=== PATIENT | female | born 1990 | race Two or more races ===

== ENCOUNTER 2016-10-06 16:54 | Emergency (ER) | payer MEDICAID, OTHER ==
[~2016-10-06] VITALS: Ht 157.5 cm; Wt 88.5 kg
[2016-10-06 18:14] LABS: Basophils # (auto) 0 uL; DEFINITIVE VIEW TRANSMISSION; Eosinophils # (auto) 0.1 uL; Eosinophils % (auto) 1.1 % (0.0-7.0); Monocytes # (auto) 0.5 uL
[2016-10-06 18:17] LABS: Basophils % (auto) 0.5 % (0.0-2.0); Hematocrit 41.7 % (36.0-46.0); Hemoglobin 13.6 g/dL (12.2-16.2); Lymphocytes % (auto) 21.6 % (10.0-50.0); Mean Corpuscular Hemoglobin 26.6 pg (28.0-32.0); Mean Corpuscular Hgb Conc. 32.5 g/dL (32.0-36.0); Mean Corpuscular Volume 81.9 fL (80.0-100.0); Mean Platelet Volume 9.1 fL (7.4-10.4); Monocytes % (auto) 5.5 % (0.0-12.0); Neutrophils # (auto) 6.6 uL; Neutrophils % (auto) 71.3 % (37.0-80.0); Platelet Count (auto) 317 10^3/uL (140-450); Red Cell Distribution Width 15.3 % (11.6-16.0); White Blood Cell 9.2 10^3/uL (4.4-10.8)
[2016-10-06 18:23] LABS: Urine Bilirubin Negative (Negative); Urine Color Yellow (Yellow); Urine Glucose Normal (Normal); Urine Ketone Negative (Negative); Urine Mucus FEW (None Seen); Urine Nitrite Negative (Negative); Urine RBC 10 /hpf (0 - 4); Urine Squamous Epithelial Cell MOD /hpf (<5); Urine Urobilinogen Normal (Negative)
[2016-10-06 18:29] LABS: Urine Blood 2+ /uL (Negative)
[2016-10-06 18:41] LABS: Albumin 3.9 g/dL (3.4-5.0); BUN/Creatinine Ratio 13.9; Calcium 8.6 mg/dL (8.5-10.1); Potassium 3.7 mmol/L (3.5-5.1)
[2016-10-06 18:44] LABS: Bilirubin, Total 0.3 mg/dL (0.2-1.0); Total Protein 8.4 g/dL (6.4-8.2)
[2016-10-06] MEDS ORDERED: metroNIDAZOLE 500 MG TAB PO ONE (23:00)
[2016-10-06] MEDS ORDERED: SODIUM CHLORIDE 0.9% 1,000 ML IV ONE (23:00)
[2016-10-06 23:33] VITALS: BP 115/45
== END 2016-10-06 23:48 | disposition home or self-care (01) ==
LOC: ER 17:11
DX: N39.0 Urinary tract infection, site not specified (principal)
CPT/HCPCS: 36415; 74176; 80053; 81001; 83690; 84702; 85025; 85049; 94761; 96360; 99285; J7030

== ENCOUNTER 2017-05-31 18:43 | Emergency (ER) | payer MEDICAID ==
[~2017-05-31] VITALS: Ht 157.5 cm; Wt 98.4 kg
[2017-05-31 18:51] VITALS: BP 107/57
== END 2017-05-31 22:51 | disposition home or self-care (01) ==
LOC: ER 18:45
DX: O26.892 Other specified pregnancy related conditions, second trimester (principal); J02.9 Acute pharyngitis, unspecified; Z3A.25 25 weeks gestation of pregnancy

== ENCOUNTER 2017-10-09 08:02 | Emergency (ER) | payer MEDICAID ==
[~2017-10-09] VITALS: Ht 157.5 cm; Wt 90.7 kg
[2017-10-09 08:54] VITALS: BP 123/71
[2017-10-09 09:21] LABS: Basophils # (auto) 0 uL; Basophils % (auto) 0.7 % (0.0-2.0); Eosinophils # (auto) 0.1 uL; Eosinophils % (auto) 1.5 % (0.0-7.0); Hematocrit 34.9 % (36.0-46.0); Hemoglobin 11.6 g/dL (12.2-16.2); Lymphocytes # (auto) 1.1 uL; Lymphocytes % (auto) 15.2 % (10.0-50.0); Mean Corpuscular Hemoglobin 28.8 pg (28.0-32.0); Mean Corpuscular Hgb Conc. 33.3 g/dL (32.0-36.0); Mean Corpuscular Volume 86.3 fL (80.0-100.0); Monocytes # (auto) 0.5 uL; Monocytes % (auto) 6.7 % (0.0-12.0); Neutrophils # (auto) 5.4 uL; Neutrophils % (auto) 75.9 % (37.0-80.0); Nucleated Red Blood Cells % 0.1 %; Platelet Count (auto) 318 10^3/uL (140-450); Red Blood Cells 4.04 10^6/uL (4.0-5.20); Red Cell Distribution Width 14.6 % (11.8-14.3)
[2017-10-09 09:45] LABS: Albumin 3.3 g/dL (3.4-5.0); Bilirubin, Total 0.4 mg/dL (0.2-1.0); Calcium 8.4 mg/dL (8.5-10.1); Potassium 3.7 mmol/L (3.5-5.1)
[2017-10-09 09:52] LABS: Urine Bacteria NONE SEEN /hpf (None Seen); Urine Blood 3+ /uL (Negative); Urine Specific Gravity 1.012 (1.001-1.035); Urine WBC 8 /hpf (0 - 5)
== END 2017-10-09 10:08 | disposition home or self-care (01) ==
LOC: ER 08:02
DX: N39.0 Urinary tract infection, site not specified (principal); N94.6 Dysmenorrhea, unspecified
CPT/HCPCS: 36415; 76830; 76856; 80053; 81001; 81025; 84702; 85025

== ENCOUNTER 2018-01-30 12:44 | Emergency (ER) | payer MEDICAID ==
[~2018-01-30] VITALS: Ht 157.5 cm; Wt 77.1 kg
[2018-01-30 12:52] VITALS: BP 120/80
== END 2018-01-30 15:51 | disposition home or self-care (01) ==
LOC: ER 12:46
DX: J02.9 Acute pharyngitis, unspecified (principal)

== ENCOUNTER 2018-09-10 10:44 | Emergency (ER) | payer MEDICAID ==
[~2018-09-10] VITALS: Ht 157.5 cm; Wt 77.1 kg
[2018-09-10 11:09] VITALS: BP 125/65
== END 2018-09-10 11:53 | disposition home or self-care (01) ==
LOC: ER 10:44
DX: J06.9 Acute upper respiratory infection, unspecified (principal)

== ENCOUNTER 2019-01-07 09:10 | Emergency (ER) | payer MEDICAID ==
[~2019-01-07] VITALS: Ht 157.5 cm; Wt 77.1 kg
[2019-01-07 10:01] VITALS: BP 125/76
== END 2019-01-07 10:54 | disposition home or self-care (01) ==
LOC: ER 09:10
DX: J03.90 Acute tonsillitis, unspecified (principal)

== ENCOUNTER 2022-09-27 16:35 | Emergency (ER) | payer MEDICAID, OTHER ==
[~2022-09-27] VITALS: Ht 157.5 cm; Wt 81.6 kg
[2022-09-27] MEDS ORDERED: CYCL-837 PO (21:37)
[2022-09-27] MEDS ORDERED: ACET-1158 PO (21:37)
[2022-09-27 23:01] VITALS: BP 121/74
== END 2022-09-27 23:01 | disposition home or self-care (01) ==
LOC: ER 16:35
DX: S39.012A Strain of muscle, fascia and tendon of lower back, initial encounter (principal); S30.1XXA Contusion of abdominal wall, initial encounter; V43.52XA Car driver injured in collision with other type car in traffic accident, initial encounter; Y93.89 Activity, other specified; Y92.410 Unspecified street and highway as the place of occurrence of the external cause; Y99.8 Other external cause status

== ENCOUNTER 2022-10-13 20:16 | Emergency (ER) | payer MEDICAID, OTHER ==
[~2022-10-13] VITALS: Ht 157.5 cm; Wt 80.5 kg
[~2022-10-13 20:16] MED LIST: ACET-1158 PO; CYCL-837 PO
[2022-10-13 21:51] LABS: Basophils # (auto) 0 10 ^3/uL (0-0.2); Basophils % (auto) 0.8 % (0.0-2.0); Eosinophils # (auto) 0.1 10 ^3/uL (0-0.8); Hematocrit 37.7 % (36.0-46.0); Hemoglobin 12.5 g/dL (12.2-16.2); Lymphocytes # (auto) 1.9 10 ^3/uL (0.4-5.4); Lymphocytes % (auto) 30.5 % (10.0-50.0); Mean Corpuscular Hemoglobin 28.4 pg (28.0-32.0); Mean Corpuscular Hgb Conc. 33.3 g/dL (32.0-36.0); Mean Corpuscular Volume 85.3 fL (80.0-100.0); Monocytes # (auto) 0.5 10 ^3/uL (0-1.3); Monocytes % (auto) 7.3 % (0.0-12.0); Neutrophils # (auto) 3.8 10 ^3/uL (1.6-8.6); Neutrophils % (auto) 60.4 % (37.0-80.0); Nucleated Red Blood Cells % 0.1 %; Red Blood Cells 4.42 10^6/uL (4.0-5.20); Red Cell Distribution Width 13.8 % (11.8-14.3); White Blood Cell 6.3 10^3/uL (4.4-10.8)
[2022-10-13] MEDS ORDERED: SODIUM CHLORIDE 0.9% 1,000 ML IV ONE (22:00)
[2022-10-13 22:07] LABS: Albumin 3.5 g/dL (3.4-5.0); Calcium 9.2 mg/dL (8.5-10.1); Potassium 4.2 mmol/L (3.5-5.1)
[2022-10-13 22:09] LABS: BUN/Creatinine Ratio 13.6
[2022-10-13 22:11] LABS: Bilirubin, Total 0.2 mg/dL (0.2-1.0); Total Protein 7.8 g/dL (6.4-8.2)
[2022-10-14 01:44] LABS: Urine Bacteria FEW /hpf (None Seen); Urine Blood 3+ /uL (Negative); Urine Mucus FEW (None Seen); Urine WBC 14 /hpf (0 - 5)
[2022-10-14] MEDS ORDERED: CIPR-173 PO (03:03)
[2022-10-14] MEDS ORDERED: cefTRIAXone SOD 1,000 MG VL IM ONE (03:15)
[2022-10-14 03:35] VITALS: BP 124/61
== END 2022-10-14 03:44 | disposition home or self-care (01) ==
LOC: ER 20:18
DX: R10.9 Unspecified abdominal pain (principal)
CPT/HCPCS: 36415; 74176; 80053; 81001; 85025; 96360; 96372; 99285; J0696; J7030

== ENCOUNTER → 2024-06-19 | Outpatient (CLI) | payer MEDICAID ==
[~2024-06-19] MED LIST changes: -ACET-1158 PO; +ACET500T58 PO; +CIPR-173 PO
[2024-06-19 12:54] LABS: Basophils # (auto) 0 10 ^3/uL (0-0.2); Basophils % (auto) 0.5 % (0.0-2.0); Eosinophils # (auto) 0 10 ^3/uL (0-0.8); Eosinophils % (auto) 0.3 % (0.0-7.0); Hematocrit 35.1 % (36.0-46.0); Hemoglobin 11.7 g/dL (12.2-16.2); Lymphocytes # (auto) 1.2 10 ^3/uL (0.4-5.4); Lymphocytes % (auto) 17.3 % (10.0-50.0); Mean Corpuscular Hemoglobin 28.1 pg (28.0-32.0); Mean Corpuscular Hgb Conc. 33.4 g/dL (32.0-36.0); Mean Corpuscular Volume 84.2 fL (80.0-100.0); Monocytes # (auto) 0.3 10 ^3/uL (0-1.3); Monocytes % (auto) 4.3 % (0.0-12.0); Neutrophils # (auto) 5.5 10 ^3/uL (1.6-8.6); Neutrophils % (auto) 77.6 % (37.0-80.0); Nucleated Red Blood Cells % 0.1 %; Platelet Count (auto) 316 10^3/uL (140-450); Red Blood Cells 4.17 10^6/uL (4.0-5.20); Red Cell Distribution Width 15.1 % (11.8-14.3); White Blood Cell 7.1 10^3/uL (4.4-10.8)
[2024-06-19 13:18] LABS: Amphetamine Screen, Urine Neg (NEGATIVE)
[2024-06-19 13:20] LABS: Barbiturate Scree,Urine Neg (NEGATIVE); Benzodiazephine Screen, Urine Neg (NEGATIVE); Cannabinoid Screen, Urine Neg (NEGATIVE); Cocaine Screen, Urine Neg (NEGATIVE); Opiate Scree,Urine Neg (NEGATIVE); Phencyclidine Screen, Urine Neg (NEGATIVE)
[2024-06-19 13:21] LABS: Alanine Aminotransferase 12 U/L (7-40); Albumin 4.6 g/dL (3.2-4.8); Alkaline Phosphatase 104 U/L (46-116); Anion Gap 9 (5-15); Aspartate Aminotransferase 14 U/L (13-40); BUN/Creatinine Ratio 7.8 (10.0-20.0); Blood Urea Nitrogen 6 mg/dL (9-23); Calcium 9.9 mg/dL (8.7-10.4); Carbon Dioxide 23 mmol/L (20-31); Chloride 105 mmol/L (98-107); Glucose 83 mg/dL (74-106); LDL Cholesterol 83 mg/dL (< 100); Potassium 3.6 mmol/L (3.5-5.1); Sodium 137 mmol/L (136-145); Thyroid Stimulating Hormone 1.04 uIU/mL (0.55-4.78); Triglycerides 133 mg/dL (< 150)
[2024-06-19 13:22] LABS: Bilirubin, Total 0.5 mg/dL (0.2-1.0); Cholesterol 156 mg/dL (< 200); HDL Cholesterol 56 mg/dL (40-59); Total Protein 7.8 g/dL (5.7-8.2)
[2024-06-19 13:29] LABS: Beta HCG, Quantitative 30678.6 mIU/mL (1.5-4.2)
[2024-06-20 08:06] LABS: RPR Non Reactive (Non Reactive)
[2024-06-21 04:06] LABS: Varicella Zoster IgG Antibody Reactive (Non Reactive)
== END | disposition home or self-care (01) ==
LOC: LAB 11:47
PROVIDERS: ATTEND Obstetrics & Gynecology
DX: Z34.80 Encounter for supervision of other normal pregnancy, unspecified trimester (principal); Z36.0 Encounter for antenatal screening for chromosomal anomalies; Z31.430 Encounter of female for testing for genetic disease carrier status for procreative management; N39.0 Urinary tract infection, site not specified
CPT/HCPCS: 36415; 80053; 80061; 80307; 83036; 84439; 84443; 84702; 85025; 86592; 86703; 86762; 86787; 86850; 86900; 86901; 87086; 87340; 87902

== ENCOUNTER → 2024-08-14 | Outpatient (CLI) | payer MEDICAID ==
[2024-08-15 13:06] LABS: Chlamydia Trachomatis, NAA Negative (Negative); Neisseria gonorrhoeae, NAA Negative (Negative)
== END | disposition home or self-care (01) ==
LOC: LAB 15:17
DX: Z34.00 Encounter for supervision of normal first pregnancy, unspecified trimester (principal)
CPT/HCPCS: 87086

== ENCOUNTER → 2024-11-06 | Outpatient (CLI) | payer MEDICAID ==
[2024-11-06 09:27] LABS: Basophils # (auto) 0 10 ^3/uL (0-0.2); Basophils % (auto) 0.5 % (0.0-2.0); Eosinophils # (auto) 0.1 10 ^3/uL (0-0.8); Eosinophils % (auto) 0.7 % (0.0-7.0); Hematocrit 35.4 % (36.0-46.0); Hemoglobin 11.8 g/dL (12.2-16.2); Lymphocytes # (auto) 1.3 10 ^3/uL (0.4-5.4); Lymphocytes % (auto) 14.7 % (10.0-50.0); Mean Corpuscular Hemoglobin 29.8 pg (28.0-32.0); Mean Corpuscular Hgb Conc. 33.3 g/dL (32.0-36.0); Mean Corpuscular Volume 89.5 fL (80.0-100.0); Monocytes # (auto) 0.4 10 ^3/uL (0-1.3); Monocytes % (auto) 4.7 % (0.0-12.0); Neutrophils # (auto) 6.8 10 ^3/uL (1.6-8.6); Neutrophils % (auto) 79.4 % (37.0-80.0); Nucleated Red Blood Cells % 0.2 %; Platelet Count (auto) 268 10^3/uL (140-450); Red Blood Cells 3.96 10^6/uL (4.0-5.20); Red Cell Distribution Width 14.5 % (11.8-14.3); White Blood Cell 8.6 10^3/uL (4.4-10.8)
[2024-11-06 09:45] LABS: Alanine Aminotransferase 21 U/L (7-40); Albumin 3.9 g/dL (3.2-4.8); Alkaline Phosphatase 98 U/L (46-116); Anion Gap 10 (5-15); BUN/Creatinine Ratio 10.4 (10.0-20.0); Carbon Dioxide 22 mmol/L (20-31); Chloride 106 mmol/L (98-107); Glucose 85 mg/dL (74-106); Potassium 3.8 mmol/L (3.5-5.1); Sodium 138 mmol/L (136-145)
[2024-11-06 09:46] LABS: Bilirubin, Total 0.4 mg/dL (0.2-1.0); Total Protein 6.5 g/dL (5.7-8.2)
[2024-11-06 09:51] LABS: Aspartate Aminotransferase 11 U/L (13-40); Blood Urea Nitrogen 7 mg/dL (9-23)
[2024-11-07 08:07] LABS: RPR Non Reactive (Non Reactive)
[2024-11-07 23:07] LABS: Chlamydia Trachomatis, NAA Negative (Negative); Neisseria gonorrhoeae, NAA Negative (Negative)
== END | disposition home or self-care (01) ==
LOC: LAB 08:42
DX: Z34.80 Encounter for supervision of other normal pregnancy, unspecified trimester (principal); Z3A.00 Weeks of gestation of pregnancy not specified
CPT/HCPCS: 36415; 80053; 82951; 83036; 85025; 86592; 86850; 86900; 86901

== ENCOUNTER → 2025-01-12 | Outpatient (CLI) | payer MEDICAID ==
[2025-01-12 12:07] LABS: Basophils # (auto) 0.1 10 ^3/uL (0-0.2); Basophils % (auto) 0.6 % (0.0-2.0); Eosinophils # (auto) 0 10 ^3/uL (0-0.8); Eosinophils % (auto) 0.4 % (0.0-7.0); Hematocrit 36.2 % (36.0-46.0); Hemoglobin 12.4 g/dL (12.2-16.2); Lymphocytes # (auto) 1.3 10 ^3/uL (0.4-5.4); Mean Corpuscular Hemoglobin 30.2 pg (28.0-32.0); Mean Corpuscular Hgb Conc. 34.3 g/dL (32.0-36.0); Mean Corpuscular Volume 88.1 fL (80.0-100.0); Monocytes # (auto) 0.5 10 ^3/uL (0-1.3); Monocytes % (auto) 5.2 % (0.0-12.0); Neutrophils # (auto) 7.3 10 ^3/uL (1.6-8.6); Neutrophils % (auto) 79.8 % (37.0-80.0); Platelet Count (auto) 254 10^3/uL (140-450); Red Blood Cells 4.11 10^6/uL (4.0-5.20); Red Cell Distribution Width 14.5 % (11.8-14.3); White Blood Cell 9.2 10^3/uL (4.4-10.8)
[2025-01-13 17:06] LABS: Chlamydia Trachomatis, NAA Negative (Negative); Neisseria gonorrhoeae, NAA Negative (Negative)
== END | disposition home or self-care (01) ==
LOC: LAB 11:32
PROVIDERS: ATTEND Obstetrics & Gynecology
DX: Z34.83 Encounter for supervision of other normal pregnancy, third trimester (principal); Z3A.00 Weeks of gestation of pregnancy not specified
CPT/HCPCS: 36415; 85025; 86780

== ENCOUNTER 2025-01-27 18:54 | Inpatient (IN) | payer MEDICAID ==
[~2025-01-27] VITALS: Ht 157.5 cm; Wt 104.3 kg
[2025-01-27] MEDS ORDERED: PREN-96 PO (21:47)
[2025-01-27] MEDS ORDERED: FERR-7 PO (21:47)
[2025-01-27 22:05] LABS: Basophils # (auto) 0 10 ^3/uL (0-0.2); Basophils % (auto) 0.3 % (0.0-2.0); Eosinophils # (auto) 0.1 10 ^3/uL (0-0.8); Eosinophils % (auto) 0.7 % (0.0-7.0); Hemoglobin 12.3 g/dL (12.2-16.2); Lymphocytes # (auto) 1.4 10 ^3/uL (0.4-5.4); Lymphocytes % (auto) 18.7 % (10.0-50.0); Mean Corpuscular Hemoglobin 30.3 pg (28.0-32.0); Mean Corpuscular Volume 89.1 fL (80.0-100.0); Monocytes # (auto) 0.4 10 ^3/uL (0-1.3); Monocytes % (auto) 5.2 % (0.0-12.0); Neutrophils # (auto) 5.7 10 ^3/uL (1.6-8.6); Neutrophils % (auto) 75.1 % (37.0-80.0); Platelet Count (auto) 276 10^3/uL (140-450); Red Blood Cells 4.04 10^6/uL (4.0-5.20); Red Cell Distribution Width 14.5 % (11.8-14.3); White Blood Cell 7.5 10^3/uL (4.4-10.8)
[2025-01-27 22:21] LABS: INR 0.97 (0.9-1.15); Prothrombin Time 10.3 sec (9.3-11.8)
[2025-01-27 22:22] LABS: Anion Gap 11 (5-15); BUN/Creatinine Ratio 9.3 (10.0-20.0); Bilirubin, Total 0.4 mg/dL (0.2-1.0); Calcium 9.2 mg/dL (8.7-10.4); Carbon Dioxide 23 mmol/L (20-31); Chloride 106 mmol/L (98-107); Glucose 99 mg/dL (74-106); Potassium 3.8 mmol/L (3.5-5.1); Sodium 140 mmol/L (136-145); Total Protein 6.9 g/dL (5.7-8.2)
[2025-01-27 22:23] LABS: Alanine Aminotransferase < 9 U/L (7-40); Alkaline Phosphatase 212 U/L (46-116); Aspartate Aminotransferase 10 U/L (13-40); Blood Urea Nitrogen 7 mg/dL (9-23)
--- NOTE | 2025-01-27 22:38 | DVH ---
US OB LIMITED CLINICAL HISTORY: Incisional pain previous scar. COMPARISON: No recent prior studies available for comparison. TECHNIQUE: Real-time grayscale, color flow and M-mode imaging of the gravid uterus is performed. Findings and impression: Single living intrauterine gestation. Cephalic presentation. heart rate 139 beats per minute. Placenta is anterior. The cervix measures approximately 4.5 cm in length and appears closed. No defin ite evidence of abruption, previa or placenta accreta at this time. Amniotic fluid index 19.4 cm.
[2025-01-27] MEDS: LACTATED RINGER'S 1,000 ML IV ONE (23:22)
[2025-01-27] MEDS: LACTATED RINGER'S 1,000 ML IV SCH (23:22)
[2025-01-28] VITALS (16 sets, daily range): BP systolic 84–119; BP diastolic 45–69; PULSE 51–65; RESP 13–20; TEMP 98–98.8; O2SAT 95–100
[2025-01-28 02:24] LABS: Urine Bacteria None Seen /hpf (None Seen)
[2025-01-28 02:36] LABS: Urine Blood TRACE /uL (Negative); Urine Clarity Clear (Clear); Urine Color Light-Yellow (Yellow); Urine Protein, UAD Negative (Negative); Urine Specific Gravity 1.012 (1.001-1.035); Urine Squamous Epithelial Cell FEW /hpf (<5); Urine Urobilinogen Normal (Negative); Urine WBC 1 /HPF (0-5); Urine pH 6.5 (5.0-9.0)
[2025-01-28 03:22] LABS: Amphetamine Screen, Urine Neg (NEGATIVE); Barbiturate Scree,Urine Neg (NEGATIVE); Benzodiazephine Screen, Urine Neg (NEGATIVE); Cannabinoid Screen, Urine Neg (NEGATIVE); Cocaine Screen, Urine Neg (NEGATIVE); Opiate Scree,Urine Neg (NEGATIVE); Phencyclidine Screen, Urine Neg (NEGATIVE)
--- NOTE | 2025-01-28 05:53 | DVHHP2 ---
OB CC & HPI Date Date of Admission: January 28, 2025 Patient Identification: : 4 Para: 3 EDC: Feb 12, 2025 EGA: 37.6 Chief Complaints: Reason for admission: section Indication for : desires repeat History of Present Complaints 34y IUP 37.6 wk presented with complaints of acute , severe 8/10 incisional pain since yesterday. Endorses contractions every 7-10 mins that have not resolved overnight after IV hydration and prolonged observation. Denies PROM or Vaginal bleeding. History of C/Section x 3, desires repeat w/ BTL sterilization. care w/ Dr. Hauser. Complicated by AMA, Obesit BMI 42 and C/S x 3 with anterior placenta, no evidence of PAS by US. Past Medical History Cardiac: No pertinent Hx Pulmonary: No pertinent Hx Central Nervous System: No pertinent Hx GI: No pertinent Hx Hemotology/Oncology: No pertinent Hx Hepatobiliary: No pertinent Hx Psychiatric: No pertinent Hx Musculoskeletal: No pertinent Hx Rheumotologic: No pertinent Hx Infectious Disease: No peritnent Hx ENT: No pertinent Hx Renal/: No pertinent Hx Endocrine: No pertinent Hx Dermatology: No pertinent Hx Past Surgical History: OB History OB History Care: Good Care Ultrasounds: Normal mid trimester US Obstetrical Complications: None Medical Complications: None Allergies: Coded Allergies: NO KNOWN ALLERGIES (Unverified , 10/06/16) Home Meds Active Scripts Ciprofloxacin Hcl (Cipro) 500 Mg Tab, 500 MG PO BID for 7 Days, #14 TAB Prov:GRICELDA SOUTH MD 10/14/22 Acetaminophen (Acetaminophen) 500 Mg Tab, 500 MG PO QIDP, #30 TAB 0 Refills Prov:CARLITO NORMAN 09/27/22 Cyclobenzaprine Hcl (Cyclobenzaprine Hcl) 5 Mg Tab, 1 TAB PO QPM PRN, #14 TAB 0 Refills Prov:CARLITO NORMAN 09/27/22 Reported Medications Ferrous Sulfate (Iron) 325 Mg Tab, 325 MG PO, TAB 01/27/25 Vit W/ Ferrous Fumara ( One Daily) Daily Tab, 1 TAB PO DAILY, TAB 1 Refill 01/27/25 Current Medications Current Medications Medications (Trade) Dose Ordered Sig/Meghan Route PRN Reason Start Time Stop Time Status Last Admin Lactated Ringer's 1,000 ml @ 125 mls/hr Q8H IV 01/27/25 21:30 01/27/25 23:22 Family & Social History Family/Social History Blood Type: O+ Rubella: immune RPR/VDRL: Negative GBS Status: Unknown HBsAG: Negative Review of Systems Constitutional: No symptom reported Ears, Nose, & Throat: No symptom reported Eyes: No symptom reported Pulmonary/Respiratory: No symptom reported Cardiovascular: No symptom reported Gastrointestinal: Abdominal Pain Genitourinary: No symptom reported Musculoskeletal: No symptom reported Skin: No symptom reported Psychiatric: No symptom reported Endocrine: No symptom reported Hemotologic/Lymphatic: No symptom reported OB Admission Exam Physical Exam HEENT: NCAT Heart: Rhythm Normal Lungs: Clear Abdomen: Other (Gravid, tender to deep palpation over c/section scar, no hernia or masses) Extremities: Normal Reflexes: Normal Cervical Dilatation: Fingertip Effacement: 0% Station: Ballotable Membranes: Intact Heart Rate: 140's Accelerations: Accelerations Present Decelerations: No Decelerations Short Term Variability: Present Prison Variability: Average (6-25) Contractions on Admission: 6-10 Minutes Apart Intensity: Moderate OB Plan Plan Admitting Diagnosis: IUP 37.6wk with early labor, previous C/S x 3 AMA Morbid obesity Other Plan: Admit for Repeat Section with Bilateral Tubal Ligation Pain 8/10 over incision is concerning for internal scar separation The R/B/A of surgery and anesthesia discussed with patient in detail, informed consent obtained Risks of pain, scar, bleeding, infection, blood transfusion, possible hysterectomy, possible injury to bowel/bladder, vessels, adjacent organs discussed in detail. Understands sterilization is permanent, and not reversible with 1% risk of failure. All questions answered. Patient agrees to proceed. Visit Coding OBGYN Date of Service: January 28, 2025 Billing Provider: SHERRIE MCKINLEY DO JOINT CLEANING MACHINE OPERATOR Common Visit Codes: [id number] INP/OBS CARE (HIGH) SHERRIE MCKINLEY DO January 28, 2025 05:53
[2025-01-28] MEDS: ceFAZolin 2 GM/D5W50ml 50 ML IV ONE (06:55)
[2025-01-28] MEDS: TETRACAINE 1% INJ 2 ML VIAL IJ ONE (07:17)
[2025-01-28] MEDS: FAMOTIDINE (10MG/ML) 2ML VL IV ONE (07:17)
[2025-01-28] MEDS ORDERED: MORPHINE SULF PF 5 MG/10 ML VIAL ONE (07:23)
[2025-01-28] MEDS ORDERED: fentaNYL CITRATE 100 MCG/2 ML VL ONE (07:23)
[2025-01-28] MEDS ORDERED: GLYCOPYRROLATE 0.2 MG/ML 1ML VIAL ONE (07:23)
[2025-01-28] MEDS ORDERED: ONDANSETRON HCL 4 MG/2 ML VIAL ONE (07:23)
[2025-01-28] MEDS ORDERED: DexAMETHasone SOD PHOS 10MG/1ML VIAL INJ ONE (07:23)
[2025-01-28] MEDS ORDERED: ePHEDrine SULFATE 50 MG/ML AMP ONE (07:23)
[2025-01-28] MEDS ORDERED: KETOROLAC TROMETH 30 MG/ML 1ML VIAL ONE (07:23)
[2025-01-28] MEDS ORDERED: oxyTOCIN 10 UNIT/ML 10ML VIAL ONE (07:23)
[2025-01-28] MEDS ORDERED: NALOXONE HCL 0.4 MG/ML VIAL IV PRN (09:15)
[2025-01-28] MEDS ORDERED: ONDANSETRON HCL 4 MG/2 ML VIAL IV PRN ×2 (09:15)
[2025-01-28] MEDS ORDERED: SIMETHICONE 80 MG CHEWABLE TABLET PO PRN (09:15)
[2025-01-28] MEDS ORDERED: HYDROmorphone HCL 2 MG/ML VL/or syr IV PRN (09:15)
[2025-01-28] MEDS: GUM (CHEWING) 1 GUM CHEW CHEW ONE (09:15)
[2025-01-28] MEDS ORDERED: KETOROLAC TROMETH 30 MG/ML 1ML VIAL IV PRN (09:15)
[2025-01-28] MEDS ORDERED: DexAMETHasone SOD PHOS 10MG/1ML VIAL INJ IV PRN (09:15)
[2025-01-28] MEDS ORDERED: ACETAMINOPHEN IV 1000 MG/100ML (10MG/ML) IV PRN (09:15)
[2025-01-28] MEDS ORDERED: diphenhdrAMINE HCL 50 MG/1 ML VL IV PRN (09:15)
[2025-01-28] MEDS ORDERED: ceFAZolin 1GM/50ML 50 ML IV SCH ×2 (09:15→14:00)
--- NOTE | 2025-01-28 09:32 | DVHOP ---
DATE OF SURGERY: 01/28/2025 PREOPERATIVE DIAGNOSES: * Term intrauterine 37 weeks 6 days. * Previous section x3 in early labor. * Multiparity, requesting voluntary female sterilization. * Maternal morbid obesity. FINAL DIAGNOSES: * Term intrauterine 37 weeks 6 days. * Previous section x3 in early labor. * Multiparity, requesting voluntary female sterilization. * Maternal morbid obesity. PROCEDURES PERFORMED: * Repeat low transverse section via Pfannenstiel skin incision. * Lysis of adhesions. * Modified [place] bilateral tubal ligation. SURGEON: Pavan Ibarra DO OILSEED MEAT PRESSER: settlement technician TYPE OF ANESTHESIA: Spinal. ANESTHESIOLOGIST: Marianne Le MD. DESCRIPTION OF FINDINGS: Delivery of a liveborn female infant cephalic presentation. Clear amniotic fluid. Loose nuchal cord x1. scores of 8 and 9. Normal uterus, bilateral fallopian tubes, ovaries and normal-appearing placenta. Moderate amount of omental adhesions to the anterior abdominal wall. Other findings, 2-layer uterine closure. TECHNICAL PROCEDURE: After informed consent was obtained, the patient was taken to the operating room where her spinal anesthesia was found to be adequate. She was placed in the supine position with a slight leftward tilt. She was sterilely prepped and draped in the usual sterile fashion. A Pfannenstiel skin incision was made through the prior scar. The scar developed sharply to the underlying layer of fascia. The fascia was incised at the midline and extended laterally by sharp dissection. The rectus muscles were dissected off the rectus fascia and entry into the peritoneal cavity was performed bluntly. The peritoneal incision was extended superiorly and inferiorly with good visualization of the bladder. Upon entry into the peritoneal cavity, there were numerous thin and thick adhesions of the anterior abdominal wall to the uterus and the omentum to the anterior abdominal wall. These were sharply and bluntly lysed. Next, the vesicouterine peritoneum was identified. It was sharply dissected with Metzenbaum scissors and a bladder flap created. Next, the Bart O retractor was placed into the incision. Using a second scalpel, the lower uterine segment was incised in a low transverse fashion. The incision was extended using bandage scissors. The amniotic fluid membranes were ruptured. The fluid was clear. The baby was found to be in the cephalic presentation. The baby was then delivered atraumatically. There was a loose nuchal cord that was reduced at the time of delivery. After 60 seconds, the cord was clamped and cut and the baby handed off to awaiting pediatric team. Cord blood was obtained. The placenta was then spontaneously delivered. The uterus was exteriorized and cleared of all clots and debris using moist laparotomy sponges. The uterine incision was repaired with #1 PDS Stratafix in 2 layers in continuous running fashion with good tissue approximation and hemostasis noted. Next, the left fallopian tube was found. It was traced to its fimbriated end. It was grasped at the mid isthmic portion with a Colleen clamp and tied with 2 ties of 0-plane gut. A mid-segment partial salpingectomy was performed. The cut ends were cauterized. The specimen was submitted to Pathology. A similar procedure was performed on the contralateral fallopian tube. There was no bleeding from the mesosalpinx. The cul-de-sac and paracolic gutters were cleared of all blood clots and debris. The uterus was returned to the abdomen. Sterile water was used for irrigation. The irrigant was clear. All instruments were then removed from the patient's abdomen after hemostasis was confirmed. There was minimal oozing from the anterior surface of the uterus from the site of adhesions. SNoW was placed over the anterior serosal surface of the uterus. I then proceeded to close the rectus fascia using #1 PDS in continuous running fashion with 2 sutures meeting in the midline. The subcutaneous tissue was then approximated with 2-0 plain gut and the skin closed in subcuticular fashion using 2-0 Stratafix Monocryl. A thin layer of Dermabond was then placed. After the Dermabond dried, the silk dressing was placed over the incision. The patient tolerated the procedure well. Sponge, lap, needle counts were correct x4. INTRAOPERATIVE COMPLICATIONS: None. ESTIMATED BLOOD LOSS: 700 mL. POSTOPERATIVE CONDITION: Stable. SPECIMENS: Cord blood, placenta, segments of left and right fallopian tubes. MEDICATIONS: The patient received 2 grams of Ancef prior to skin incision and IV Pitocin at the time of cord clamp. DO CHRIS Alarcon TID: [id number] RECEIPT: [id number]
[2025-01-28] MEDS ORDERED: IBUPROFEN 600 MG TAB PO PRN (16:00)
[2025-01-28] MEDS: ceFAZolin 1GM/50ML 50 ML IV SCH (16:22)
[2025-01-28] MEDS: DOCUSATE SOD 100 MG CAP PO SCH (22:00)
[2025-01-29] VITALS (11 sets, daily range): BP systolic 90–122; BP diastolic 45–82; PULSE 49–80; RESP 15–17; TEMP 98–98.5; O2SAT 95–99
--- NOTE | 2025-01-29 03:16 | DVHPN2 ---
Progress Note Date Seen: January 29, 2025 Subjective POD#1 s/p repeat C/S and BTL, early term 37+ wk S: Pain moderate. Feels well. Lochia minimal. + Flatus vital signs Vital Sign Date Time Temp Pulse Resp B/P (MAP) Pulse Ox O2 Delivery O2 Flow Rate FiO2 01/28/25 19:30 Room Air 01/28/25 18:30 98.0 51 14 97/54 (68) 97 98.0 01/28/25 09:30 0.0 Total Intake and Output 01/28/25 01/28/25 01/29/25 15:00 23:00 07:00 Output Total 325 ml 1875 ml 300 ml Balance -325 ml -1875 ml -300 ml medications Current Medications Medications Dose Ordered Sig/Meghan Route Start Time Stop Time Status Last Admin Dose Admin Lactated Ringer's 1,000 ml @ 125 mls/hr Q8H IV 01/27/25 21:30 01/28/25 06:54 125 MLS/HR Diphenhydramine HCl 25 mg Q4HP PRN IV 01/28/25 09:15 Ondansetron HCl 4 mg Q4HP PRN IV 01/28/25 09:15 Ketorolac Tromethamine 30 mg Q6HP PRN IV 01/28/25 09:15 02/02/25 09:14 Acetaminophen 1,000 mg [id number] PRN IV 01/28/25 09:15 01/29/25 09:14 Hold Hydromorphone HCl 1 mg Q4HP PRN IV 01/28/25 09:15 Docusate Sodium 200 mg HS PO 01/28/25 22:00 Dimethicone 80 mg QID PRN PO 01/28/25 09:15 Cefazolin Sodium 50 ml @ 100 mls/hr Q8HR IV 01/28/25 16:00 01/29/25 06:29 01/29/25 02:36 100 MLS/HR Ibuprofen 600 mg Q6H PRN PO 01/28/25 16:00 laboratory and microbiology Laboratory Tests 01/27/25 21:56 Test 01/27/25 21:56 Range/Units Serum Glucose 99 74-106 mg/dL Objective O: AFVSS Chest: heart and lung sounds normal. Abd soft, non-tender, fundus firm, BS, no rebound or guarding, Incision - dressing and incision clean, dry, intact Ext Neg Homans, Non-tender, edema Lochia - minimal Labs Pending Assessment/Plan POD#1 s/p Repeat C/S and BTL, doing well Plan: Continue supportive care Pending CBC this morning Ambulate, Pain control, Regular diet Plan discussed with: Patient Visit Coding OBGYN Date of Service: January 29, 2025 Billing Provider: SHERRIE MCKINLEY DO CLOTH BOOKER Common Visit Codes: 95342-DMC/OBS SAME DATE (LOW) SHERRIE MCKINLEY DO January 29, 2025 03:16
[2025-01-29] MEDS ORDERED: IBU600T PO (03:23)
[2025-01-29] MEDS ORDERED: HYDR1TAB97 PO (03:23)
[2025-01-29] MEDS ORDERED: IBUPROFEN 600 MG TAB PO SCH (06:00)
[2025-01-29 08:10] LABS: Basophils # (auto) 0 10 ^3/uL (0-0.2); Basophils % (auto) 0.3 % (0.0-2.0); Eosinophils # (auto) 0 10 ^3/uL (0-0.8); Eosinophils % (auto) 0.1 % (0.0-7.0); Hematocrit 31.2 % (36.0-46.0); Hemoglobin 10.5 g/dL (12.2-16.2); Lymphocytes # (auto) 1.8 10 ^3/uL (0.4-5.4); Lymphocytes % (auto) 12.5 % (10.0-50.0); Mean Corpuscular Hemoglobin 29.8 pg (28.0-32.0); Mean Corpuscular Hgb Conc. 33.5 g/dL (32.0-36.0); Mean Corpuscular Volume 88.8 fL (80.0-100.0); Monocytes # (auto) 0.7 10 ^3/uL (0-1.3); Monocytes % (auto) 5.3 % (0.0-12.0); Neutrophils # (auto) 11.5 10 ^3/uL (1.6-8.6); Neutrophils % (auto) 81.8 % (37.0-80.0); Platelet Count (auto) 253 10^3/uL (140-450); Red Blood Cells 3.52 10^6/uL (4.0-5.20); Red Cell Distribution Width 14.2 % (11.8-14.3); White Blood Cell 14.1 10^3/uL (4.4-10.8)
[2025-01-29] MEDS: ceFAZolin 1GM/50ML 50 ML IV ONE (10:47)
[2025-01-29] MEDS ORDERED: HYDROcodone-ACET 5/325MG TAB PO PRN ×2 (12:00)
[2025-01-29] MEDS: SIMETHICONE 80 MG CHEWABLE TABLET PO SCH (12:00)
[2025-01-29] MEDS ORDERED: IBUPROFEN 800 MG TAB PO PRN (12:00)
--- NOTE | 2025-01-29 16:26 | DVHDS2 ---
Physician Discharge Progress N Final Diagnosis: Term delivered s/p repeat c/Section and BTL Operations or Procedures: Operations or Procedures Repeat C/S and BTL Commentary: Commentary Normal course Meeting all milestone Patient requested to be discharged on POD#1, declined to stay longer for observation/recovery. Condition on Discharge: Stable Disposition: Home Discharge Instructions: Diet: Regular Activity: Light activity Activity comment: Pelvic rest x 6 wk Follow Up/Referral: 1 wk for wound check Dr Hauser or Radha Venegas FIRE CREW SPECIALIST Medications: eRx [place]/ Ibuprofen Follow Up Care: Discharge Statement: "Patient was advised to return to the ER or call 911 if any headaches, dizzine ss, shortness of breath, chest pain, abdominal pain, bleeding, fevers, or worsening of medical condition. Patient was counseled about treatment plan, medications, possible side effects, patientverbalized understanding. All questions were answered to the best of my ability. This discharge took greater then 30 minutes in planning, reviewing documentation, counseling the patient, and discussing with other team members." Visit Coding OBGYN Date of Service: January 29, 2025 Billing Provider: SHERRIE MCKINLEY DO FISHERIES INSPECTOR Common Visit Codes: 86703-QUF/OBS DISCH DAY <30MIN SHERRIE MCKINLEY DO January 29, 2025 16:26
== END 2025-01-29 17:52 | disposition home or self-care (01) | DRG 539 ==
LOC: LDRP 18:54 → OBSVTOIN 01-28 05:20 → LDRP 01-28 08:41
PROVIDERS: ADMIT Obstetrics & Gynecology; ATTEND Obstetrics & Gynecology
PROC: 0UB70ZZ Excision of Bilateral Fallopian Tubes, Open Approach (ICD-10-PCS; 2025-01-28)
PROC: 10D00Z1 Extraction of Products of Conception, Low, Open Approach (ICD-10-PCS; principal; 2025-01-28 07:42)
DX: O34.211 Maternal care for low transverse scar from previous cesarean delivery (principal); R71.0 Precipitous drop in hematocrit; E66.01 Morbid (severe) obesity due to excess calories; O99.214 Obesity complicating childbirth; Z30.2 Encounter for sterilization; Z37.0 Single live birth; Z3A.37 37 weeks gestation of pregnancy; Z79.2 Long term (current) use of antibiotics; Z79.1 Long term (current) use of non-steroidal anti-inflammatories (NSAID); Z79.899 Other long term (current) drug therapy
CPT/HCPCS: 36415; 59025; 76815; 80053; 80307; 81001; 81002; 85025; 85610; 85730; 86780; 86803; 86850; 86900; 86901; 94760; 94762; 96360; 96361; G0378; J1100; J1885; J2405; J2590; J3490